=== PATIENT | male | born 1955 | race Caucasian/White ===

== ENCOUNTER 2024-09-23 19:40 | Emergency (ER) | payer OTHER, SELFPAY ==
[2024-09-23 19:42] VITALS: BP 172/112
--- NOTE | 2024-09-23 23:10 | ED.GENMED ---
History of Present Illness
General
Chief Complaint: Skin Surface Trauma
Source: patient
Exam Limitations: none
Time Seen by Provider: 09/23/24 21:41
Nursing documentation reviewed up to this point in time: agreed with
History of Present Illness
History of Present Illness:
69-year-old male presenting to the emergency department today with concerns of laceration to his left elbow that occurred prior to arrival when he slipped on ice. No head strike no loss of consciousness not on blood thinners. Unsure when his last
tetanus shot was.
Review of Systems
Review of Systems
Allergies reviewed?: Yes
All Other Systems: ROS reviewed and negative except as documented in HPI and ROS
Phy Exam
Physical Exam
Physical Exam:
GENERAL: Alert , in no apparent distress
EYE: pupils equal and reactive
NECK: Supple, no significant adenopathy.
ENT: o/p clr, mmm.
CARDIAC: Regular rate and rhythm .
LUNGS: Clear breath sounds bilaterally, no acute respiratory distress, no wheezes/rales/rhonchi
ABDOMEN: Soft, without focal tenderness, no r/g, no cvat
NEUROLOGICAL: Alert and oriented, no focal neuro deficits
SKIN: Laceration to the left elbow distal to the elbow 2.5 cm in length subcutaneous in depth surrounded by abrasion warm and dry, skin intact.
MUSCULOSKELETAL: No edema, well perfused.
PSYCH: Normal and appropriate interaction.
Course
Orders/Labs/Results
Orders:
Orders
09/23/24 23:10
Tetanus/Diphth/Acelpertussis [Adacel] 0.5 ml IM .ONCE ONE
Vital Signs
Initial and Last Documented VS:
Initial Vital Signs
Temp Pulse Resp BP Pulse Ox
98.3 F 100 16 172/112 96
09/23/24 19:42 09/23/24 19:42 09/23/24 19:42 09/23/24 19:42 09/23/24 19:42
Last Documented Vital Signs
Temp Pulse Resp BP Pulse Ox
98.3 F 100 16 172/112 96
09/23/24 19:42 09/23/24 19:42 09/23/24 19:42 09/23/24 19:42 09/23/24 19:42
Procedures
Laceration Closure
Left Posterior Distal Elbow:
Status of Wound: clean
Size of Wound in cm: 2.5
Description of Wound Edges: sharp and surrounded by abrasion
Preparation: cleaned with saline
Anesthesia: 1% Lidocaine with epi
Revision/Debridement: routine- no revision and irrigate-direct pressure
Wound exploration: explored to base- no FB and no tendon involvement
Type of Closure: single layer closure
Skin Closure Material: 4-0 nylon
Number of sutures: 3
MDM/Problems Addressed
MDM/Problems Addressed:
69-year-old male presenting to the emergency department today with concerns of a laceration to his left elbow. This was cleaned thoroughly and closed with 3 stitches. No evidence of bony injury good strength and range of motion of the arm. No
additional trauma. Was given updated tetanus shot otherwise stable discharge return precautions given.
*Critical Care Note
Total Time (30-74mins, 75-104mins- exclusive of procedures): Not Applicable
ED Attending Note
-
Portions of this chart may have been created with voice recognition software.� Occasional wrong word or��sound alike� substitutions may have occurred due to the inherent limitations of voice recognition software.
Discharge Plan
Departure
Patient Disposition: Home (Routine Discharge)
Date of Disposition: 09/23/24
Time of Disposition: 23:12
Patient with high blood pressure during this ER visit?: No
Condition: Good
Covid-19: Not Applicable
Discharge Problem:
Elbow laceration
Instructions: Laceration Repair With Stitches (DC)
Activity Restrictions/Additional Instructions:
You came to the emergency department today with concerns of a laceration to the area just distal to your left elbow. Please keep the area clean covered and have sutures removed in 12 to 14 days. Return for any worsening, new or concerning symptoms.
Interventions
Interventions:
*Risk Screen - Suicide Last Done: 09/23/24 19:42
*General Assessment Last Done: 09/23/24 19:42
*Neglect/Abuse Screening Last Done: 09/23/24 19:42
Discharge Date and Time
Print Language: CZECH
[2024-09-23] MEDS: ADACEL 0.5 ML IM (23:29)
== END 2024-09-23 23:36 | disposition home or self-care (01) ==
LOC: EMR 19:40
PROVIDERS: EMERGENCY PHYSICIAN Emergency Medicine
DX: S51.012A Laceration without foreign body of left elbow, initial encounter (principal); W00.0XXA Fall on same level due to ice and snow, initial encounter; Z23 Encounter for immunization
CPT/HCPCS: 99282; 12001; 90471; 90715